=== PATIENT | male | born 1985 | race Two or more races ===

== ENCOUNTER 2024-06-27 11:01 | Emergency (ER) | payer MEDICAID, SELFPAY ==
[2024-06-27 11:14] VITALS: BP 143/95; PULSE 82; RESP 16; TEMP 36.6; O2SAT 97
[2024-06-27 11:16] VITALS: BMI 35.5
--- NOTE | 2024-06-27 11:16 | XR_ITS ---
Examination: Wrist, right 3 views Technique: Wrist AP, oblique, lateral 3 views Date and time of exam: June 27, 2024 at 1153 hours INDICATIONS: Wrist pain 3 weeks. 

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
== END 2024-06-27 13:08 ==
PROVIDERS: Emergency Provider Emergency Medicine
DX: Z02.89 Encounter for other administrative examinations (principal); M85.631 Other cyst of bone, right forearm; B35.3 Tinea pedis
CPT/HCPCS: 29126; 73110; 99283; A4565